=== PATIENT | male | born 1960 | race Caucasian/White ===

== ENCOUNTER 2025-03-02 14:25 | Emergency (ER) | payer OTHER, SELFPAY ==
[2025-03-02] MEDS ORDERED: Boostrix 0.5 ML (Tdap) VIAL (>/=7 yrs of age) ONE (14:40)
[2025-03-02] MEDS ORDERED: Lidocaine 1% (PF) 30 ML VIAL ONE (14:43)
[2025-03-02] MEDS ORDERED: Bacitracin 1 PK ONE (15:18)
== END 2025-03-02 15:30 | disposition home or self-care (01) ==
LOC: NAV ERS 14:25
DX: S61.210A Laceration without foreign body of right index finger without damage to nail, initial encounter (principal); I10 Essential (primary) hypertension; W27.8XXA Contact with other nonpowered hand tool, initial encounter; Y93.89 Activity, other specified; Z79.899 Other long term (current) drug therapy; Z23 Encounter for immunization
CPT/HCPCS: 12001; 90471; 90715